=== PATIENT | male | born 1975 | race African-American/Black ===

== ENCOUNTER 2024-12-01 15:36 | Inpatient (IN) ==
--- NOTE | 2024-12-01 15:48 | Emergency Department Note ---
History of Present Illness General Chief complaint: Referred by Doctor Stated complaint: left scrotal swelling, drainage Time Seen by Provider: 12/01/24 15:47 History of Present Illness Maximum Pain Intensity: 6 This is a 49-year-old male status post bilateral hydrocelectomy on 11/11/24 that presents to the emergency department accompanied by 2 corrections officers with complaints of "infection/swelling". The patient predominant provides the history as well as history obtained from the call in paper on the patient's chart as [facility] had also called in. Patient underwent a bilateral hydrocelectomy on 11/11/24. He was seen here for scrotal edema more in the left side on 11/21. He returns today noting progressively worsening edema to the left hemiscrotum with a large amount of drainage today. He notes the amount of drainage was much more than previous. It is purulent in nature he notes that with some blood. He does note that the drain fell out prematurely from the left hemiscrotum about 4 days postop rather than 7 days. He does note yesterday fevers and chills and difficulty getting warm. Home Medications Medication Instructions Recorded Confirmed Type albuterol 90 mcg-budesonide 80 2 inh inhalation QID PRN Shortness 07/12/24 12/01/24 History mcg/actuation HFA aerosol inhaler Of Breath amlodipine 5 mg tablet (Norvasc) 5 mg PO DAILY 07/12/24 12/01/24 History atorvastatin 20 mg tablet (Lipitor) 20 mg PO HS 07/12/24 12/01/24 History docusate sodium 100 mg capsule 100 mg PO DAILY 12/01/24 12/01/24 History ibuprofen 600 mg tablet 600 mg PO TID 12/01/24 12/01/24 History Allergies Allergy/AdvReac Type Severity Reaction Status Date / Time No Known Allergies Allergy Verified 12/01/24 16:54 Past Med/Surg History Problem List COPD (chronic obstructive pulmonary disease) (Chronic) Hyperlipidemia (Chronic) Hypertension (Chronic) Left hydrocele (Acute) Inguinal hernia bilateral, non-recurrent (Chronic) Cystitis (Acute) Ventral hernia without obstruction or gangrene (Chronic) Renal cyst, acquired, left (Chronic) Reactive thrombocytosis (Acute) Neutrophilic leukocytosis (Acute) Scrotal abscess (Acute) Medical History Hydrocele in adult Reason for procedure 11/11/24 Surgical History History of hydrocelectomy History of tooth extraction "Removal of impacted tooth - soft tissue" Social History Smoking Status: Former smoker Tobacco Type: Cigarettes Cigarettes Per Day: 2 PPD; Second Hand Exposure: No; Do You Dip or Chew Tobacco: No; Hx Alcohol Use: No Hx Substance Use: No Preferred Language: Setswana Communication Ability: Effective Communication Ability Comment: CECI Tian 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 Beliefs That Will Affect Care: None Current Living Situation: Other Current Living Situation Comment: CECI Tian Feels Safe at Home: Yes Assistive Devices: Glasses Review of Systems A total of 10 systems reviewed and were otherwise negative Physical Exam Vital Signs Vital Signs - 24 hr 12/01/24 15:40 12/01/24 18:07 Temperature 36.5 C Temperature Source Skin Pulse Rate 109 H 87 Respiratory Rate 20 Respiratory Effort / Characteristics Non-Labored Spontaneous Respiratory Depth Normal Respiratory Pattern Regular Blood Pressure 110/75 Blood Pressure Mean 86 Pulse Oximetry 98 Oxygen Delivery Method Room Air Sepsis Recent Fever Within 48 Hours No Sepsis New/Unexplained Change in Mental Status N/A Sepsis Action Taken by Nursing No Action Required VITAL SIGNS - Vital signs and nursing notes were reviewed. Tachycardic at 109, otherwise stable and afebrile. GENERAL - 49-year-old male appearing his stated age who is in no acute distress. Communicates well with provider and answers questions appropriately. SKIN -See exam below. HEAD - NC/AT. EYES - Sclera anicteric. LUNGS - Chest wall symmetric without accessory muscle use, intercostals retractions, or central cyanosis. Normal vesicular breath sounds CTA B/L. No wheezes, rales, or rhonchi appreciated. CARDIAC - RRR ABDOMEN - Abdominal contour normal without pulsations or visible masses. BS normoactive all four quadrants. No tenderness, palpable masses, hepatosplenomegaly, or ascites noted. EXTREMITIES - No clubbing or peripheral cyanosis. +5/5 strength noted in UE/LE bilaterally. NEUROLOGIC - Cranial nerves II through XII grossly intact. PSYCH -alert, oriented and pleasant on examination. GUverbal consent was obtained. JUSTIN Hidalgo present as plumber pipe fitting. There is a large amount of left hemiscrotal edema tracking to the left suprapubic region. There is serosanguineous and purulent drainage from the superior aspect of the edematous region. The area is with induration as well. No fluctuance. No crepitus. Course Administered Medications Acetaminophen (Acetaminophen 500 Mg Tab) 1,000 mg PO Q8H VALERIA Stop: 12/31/24 21:59 Last Admin: 12/01/24 22:36 Dose: 1,000 mg Documented By: MIKAYLA Atorvastatin Calcium (Atorvastatin 20 Mg Tab) 20 mg PO HS VALERIA Stop: 12/31/24 21:48 Last Admin: 12/01/24 22:39 Dose: 20 mg Documented By: MIKAYLA Ceftriaxone Sodium (Rocephin) 2,000 mg in 50 mls @ 100 mls/hr IV Q24H VALERIA Stop: 12/06/24 21:59 Last Infusion: 12/01/24 23:09 Dose: Infused Documented By: Admin: 12/01/24 22:39 Dose: 100 mls/hr Documented By: MIKAYLA Ketorolac Tromethamine (Ketorolac 30 Mg/Ml Vial) 30 mg IV Q6H VALERIA Stop: 12/06/24 21:59 Last Admin: 12/01/24 22:36 Dose: 30 mg Documented By: MIKAYLA Discontinued Medications Sodium Chloride (Nss) 1,000 mls @ 999 mls/hr IV .Q1H1M ONE Stop: 12/01/24 17:01 Last Infusion: 12/01/24 18:31 Dose: Infused Documented By: Admin: 12/01/24 16:21 Dose: 999 mls/hr Documented By: ARS Piperacillin Sod/Tazobactam Sod (Zosyn) 4.5 gm in 100 mls @ 200 mls/hr IV NOW ONE; Protocol Stop: 12/01/24 17:39 Last Infusion: 12/01/24 18:31 Dose: Infused Documented By: Admin: 12/01/24 17:18 Dose: 200 mls/hr Documented By: AVM Vancomycin HCl 2,250 mg/ (Sodium Chloride) 545 mls @ 200 mls/hr IV NOW ONE Stop: 12/01/24 19:53 Last Infusion: 12/01/24 21:52 Dose: Infused Documented By: Admin: 12/01/24 18:11 Dose: 200 mls/hr Documented By: AFTAB Ioversol (Optiray 320 100ml) 94 ml IV ONCE ONE Stop: 12/01/24 17:36 Last Admin: 12/01/24 17:35 Dose: 94 ml Documented By: GUILLERMINA Medical Decision Making Laboratory Data 12/01/24 16:15 12/01/24 16:15 Lab Results 12/01/24 12/01/24 Range/Units 16:15 17:22 WBC 16.28 H (4.8-10.8) K/ul RBC 3.84 L (4.70-6.10) M/uL Hgb 11.6 L (14.0-18.0) g/dl Hct 34.5 L (42.0-52.0) % MCV 89.8 (80.0-100.0) fL MCH 30.2 (25.0-34.0) pg MCHC 33.6 (32.0-36.0) g/dL RDW Std Deviation 38.7 (36.4-46.3) fL RDW Coeff of Justine 11.9 (11.5-14.5) % Plt Count 652 H (130-400) K/uL MPV 9.4 (9.4-12.4) fL Immature Gran % (Auto) 0.4 % Neut % (Auto) 75.5 % Lymph % (Auto) 13.0 % [place] % (Auto) 9.5 % Eos % (Auto) 1.2 % Baso % (Auto) 0.4 % Neut # (Auto) 12.28 H (1.40-6.50) K/uL Lymph # (Auto) 2.12 (1.20-3.40) K/uL [place] # (Auto) 1.55 H (0.11-0.59) K/uL Eos # (Auto) 0.19 (0.00-0.50) K/uL Baso # (Auto) 0.07 (0.00-0.20) K/uL Immature Gran # (Auto) 0.07 (0.01-0.20) K/uL Sodium 134 L (136-145) mmol/L Potassium 3.5 (3.5-5.1) mmol/L Chloride 103 (98-107) mmol/L Carbon Dioxide 22 (21-32) mmol/L Anion Gap 9 (3-11) BUN 11 (6-23) mg/dl Creatinine 0.85 (0.6-1.4) mg/dl Est Cr Clr Drug Dosing 135.5 ml/min eGFR 105.86 BUN/Creatinine Ratio 12.9 (10-20) Glucose 113 H (70-99(Fasting)) mg/dl Calcium 9.3 (8.6-10.3) mg/dl Total Bilirubin 0.8 (0.2-1.0) mg/dl AST 24 (13-39) U/L ALT 34 (7-52) U/L Alkaline Phosphatase 79 (34-104) U/L Total Protein 8.6 H (6.0-8.3) gm/dl Albumin 3.9 (3.4-5.0) gm/dl Globulin 4.7 H (2.5-4.0) gm/dl Albumin/Globulin Ratio 0.8 L (0.9-2) Procalcitonin 0.10 (0-0.5) ng/ml Urine Color Dark Yellow Urine Appearance Clear (Clear) Urine pH 5.5 (4.5-7.5) Ur Specific [place] 1.030 (1.000-1.030) Urine Protein 1+ H (Negative) Urine Glucose (UA) Negative (Negative) Urine Ketones Trace H (Negative) Urine Blood Trace H (Negative) Urine Nitrite Negative (Negative) Urine Bilirubin Negative (Negative) Urine Urobilinogen Negative (Negative) Ur Leukocyte Esterase Trace H (Negative) Urine WBC (Auto) 0-5 (0-5) /hpf Urine RBC (Auto) 0-2 (0-2) /hpf U Hyaline Cast (Auto) 0-2 (0-2) /lpf U Epithel Cells (Auto) 3-5 H (0-2) /hpf Urine Bacteria (Auto) None Seen (None Seen) Urine Comment Imaging Data Radiologist's Impression: Abdomen/Pelvis CT 12/01/24 16:20 Clinical History: Scrotal edema and infection Technique: Axial computed tomography images were obtained of the abdomen and pelvis after the administration of intravenous contrast. No prior CT is available for comparison. Findings: The liver is overall of normal size, attenuation, and contour with no sign of cirrhosis or significant fatty infiltration. There are several hepatic cysts, measuring up to 1.5 cm. No liver mass lesion is seen. The portal vein is patent. The gallbladder appears unremarkable. No bile duct dilatation is noted. The spleen is of normal size. No focal splenic lesion is evident. The pancreas appears normal with no sign of acute or chronic pancreatitis and no mass lesion noted. The pancreatic duct is of normal caliber. The adrenal glands appear unremarkable. No definite renal or proximal ureteral calculi are seen on this contrast-enhanced study. There is no hydronephrosis or perinephric stranding. No renal mass lesion is identified. There is a 1 cm left renal cyst The aorta is of normal caliber. No abdominal adenopathy is seen. There is a small to moderate sized ventral hernia containing only fat. The stomach appears normal. There is no sign of small bowel obstruction. The colon appears unremarkable. The appendix appears normal also. No free intraperitoneal fluid or air is identified. No distal ureteral or bladder calculi are seen. The bladder is decompressed. There is mild diffuse prominence of the bladder wall. The iliac arteries are of normal caliber. No pelvic adenopathy is noted. There are bilateral inguinal hernias containing only fat There is prominent edema of the scrotal sac. There is a complex left hydrocele. There is a possible soft tissue abscess in the left scrotal sac, measuring up to 3.8 x 3.2 cm The lungs bases appear clear. No fracture is identified. No focal osseous lesion is seen. There is scoliosis Impression: 1. Hepatic and left renal cysts 2. Ventral and bilateral inguinal hernias containing only fat 3. Mild prominence of the wall of the urinary bladder. This appearance could be due to incomplete distention, though infectious cystitis or other pathology cannot be excluded. Correlation with urinalysis may be useful 4. Prominent edema of the scrotal sac and complex left hydrocele, as well as a possible soft tissue abscess. A scrotal ultrasound could be obtained for further evaluation ACT 112: Positive. There are findings on this exam that require communication between the performing entity and the patient following Patient Test Result Information Act ([place] ACT 112) guidelines. Electronically signed by Caleb Cruz 12-01-2024 6:27 PM MDM Narrative Patient was seen and evaluated as above in room D05. Review was performed of triage nursing notes and vital signs. I did review pertinent previous visits and patient history. After obtaining a thorough history and physical examination the above work up was performed. Patient presents to us today for evaluation of the above symptoms. In short, the patient is experiencing left hemiscrotal edema following hydrocelectomy on 12/02. On examination there is a large amount of left hemiscrotal edema with induration. There is serosanguineous and purulent material noted emanating from a small opening to the left superior aspect of the hemiscrotum. There is a benign abdomen. He is tachycardic at 109, otherwise vital signs are stable. He does endorse subjective fever/chills beginning yesterday. Options of care were discussed with the patient. IV access was established. Labs were drawn. There is leukocytosis 16.28. Minor anemia with hemoglobin of 11.6. Mild hyponatremia 134. Procalcitonin detectable, but within normal range. Hyperglycemia 113. IV Zosyn, IV vancomycin ordered for broad coverage of the suspected left hemiscrotal infection. Prior to the initiation of antibiotics, blood cultures and wound culture was obtained. Plan at this time is admission to the hospital for further evaluation and management. I discussed it with Dr. Serra, hospitalist. 1655: I spoke with Dr. Pacheco, urologist. We discussed the plan. CT scan results as above. This shows hepatic and left renal cysts. Ventral and bilateral inguinal hernias. Prominence of the urinary bladder. Prominent edema of the scrotal sac and complex of hydrocele and possible soft tissue abscess. Please refer to further documentation regarding his stay. GCS: 15 In the evaluation and treatment of this patient the following differential diagnoses were entertained: UTI, Reyes gangrene, cellulitis, postop edema, infection, among others Impression & Plan Scrotal swelling Discharge Plan Visit Data Chief Complaint: Referred by Doctor Stated Complaint: left scrotal swelling, drainage ED Provider: Omer Camargo ED Midlevel Provider: David Genao Discharge Problem: Scrotal swelling Patient Disposition: Admitted As Inpatient Condition: Good Discharge Instructions Interventions: ED Discharge Assessment Last Done: 12/01/24 20:53
[2024-12-01] MEDS: SODIUM CHLORIDE 0.9% 1,000 ML IV ONE (16:21)
[2024-12-01 16:32] LABS: Hematocrit (blood only) 34.5 % (42.0-52.0); Hemoglobin 11.6 g/dl (14.0-18.0); Immature Granulocytes # (auto) 0.07 K/uL (0.01-0.20); Immature Granulocytes % (auto) 0.4 %; Mean Corpuscular Hemoglobin 30.2 pg (25.0-34.0); Mean Corpuscular Volume 89.8 fL (80.0-100.0); Platelet Count 652 K/uL (130-400); RDW Standard Deviation 38.7 fL (36.4-46.3); Red Blood Count 3.84 M/uL (4.70-6.10); White Blood Count 16.28 K/ul (4.8-10.8)
[2024-12-01 16:50] LABS: Alanine Aminotransferase 34.0 U/L (7-52); Albumin Globulin Ratio 0.8 (0.9-2); Albumin Level 3.9 gm/dl (3.4-5.0); Alkaline Phosphatase 79.0 U/L (34-104); Anion Gap 9.0 (3-11); Bilirubin,Total 0.8 mg/dl (0.2-1.0); Blood Urea Nitrogen 11.0 mg/dl (6-23); Calcium 9.3 mg/dl (8.6-10.3); Carbon Dioxide 22.0 mmol/L (21-32); Chloride 103.0 mmol/L (98-107); Creatinine Clr Calc Pharmacy 135.5 ml/min; Globulin 4.7 gm/dl (2.5-4.0); Glucose 113.0 mg/dl (70-99(Fasting)); Potassium 3.5 mmol/L (3.5-5.1); Sodium 134.0 mmol/L (136-145); Total Protein 8.6 gm/dl (6.0-8.3)
[2024-12-01] MEDS ORDERED: VANCOMYCIN CONSULT ACTIVE PRN ×2 (17:10→21:49)
[2024-12-01] MEDS: PIPERACILLIN/TAZOBACTAM 4.5 GM/100 ML BAG IV ONE (17:18)
[2024-12-01] MEDS: OPTIRAY 320 100ml IV ONE (17:35)
[2024-12-01 17:36] LABS: Appearance Urine Clear (Clear); Bacteria Urine Automated None Seen (None Seen); Cast Urine Automated 0-2 /lpf (0-2); Glucose Urine UA Negative (Negative); RBC Urine Automated 0-2 /hpf (0-2); WBC Urine Automated 0-5 /hpf (0-5)
[2024-12-01] MEDS: VANCOMYCIN HCL 2,250 MG in SODIUM CHLORIDE 0.9% 500 ML IV ONE (18:11)
--- NOTE | 2024-12-01 18:27 | CT Scan Report ---
Clinical History: Scrotal edema and infection Technique: Axial computed tomography images were obtained of the abdomen and pelvis after the administration of intravenous contrast. No prior CT is available for comparison. Findings: The liver is overall of normal size, attenuation, and contour with no sign of cirrhosis or significant fatty infiltration. There are several hepatic cysts, measuring up to 1.5 cm. No liver mass lesion is seen. The portal vein is patent. The gallbladder appears unremarkable. No bile duct dilatation is noted. The spleen is of normal size. No focal splenic lesion is evident. The pancreas appears normal with no sign of acute or chronic pancreatitis and no mass lesion noted. The pancreatic duct is of normal caliber. The adrenal glands appear unremarkable. No definite renal or proximal ureteral calculi are seen on this contrast-enhanced study. There is no hydronephrosis or perinephric stranding. No renal mass lesion is identified. There is a 1 cm left renal cyst The aorta is of normal caliber. No abdominal adenopathy is seen. There is a small to moderate sized ventral hernia containing only fat. The stomach appears normal. There is no sign of small bowel obstruction. The colon appears unremarkable. The appendix appears normal also. No free intraperitoneal fluid or air is identified. No distal ureteral or bladder calculi are seen. The bladder is decompressed. There is mild diffuse prominence of the bladder wall. The iliac arteries are of normal caliber. No pelvic adenopathy is noted. There are bilateral inguinal hernias containing only fat There is prominent edema of the scrotal sac. There is a complex left hydrocele. There is a possible soft tissue abscess in the left scrotal sac, measuring up to 3.8 x 3.2 cm The lungs bases appear clear. No fracture is identified. No focal osseous lesion is seen. There is scoliosis Impression: 1. Hepatic and left renal cysts 2. Ventral and bilateral inguinal hernias containing only fat 3. Mild prominence of the wall of the urinary bladder. This appearance could be due to incomplete distention, though infectious cystitis or other pathology cannot be excluded. Correlation with urinalysis may be useful 4. Prominent edema of the scrotal sac and complex left hydrocele, as well as a possible soft tissue abscess. A scrotal ultrasound could be obtained for further evaluation ACT 112: Positive. There are findings on this exam that require communication between the performing entity and the patient following Patient Test Result Information Act ([place] ACT 112) guidelines. Electronically signed by Caleb Cruz 12-01-2024 6:27 PM
--- NOTE | 2024-12-01 19:07 | History & Physical Report ---
Date of Service December 01, 2024 Assessment & Plan (1) Scrotal abscess: (2) Neutrophilic leukocytosis: (3) Reactive thrombocytosis: (4) Cystitis: (5) Left hydrocele: Plan In summary this is a 49-year-old male who presents with postsurgical complication of a possible left scrotal abscess; unclear at this time if this is communicating with the scrotum proper or if this is a separate superficial skin/soft tissue abscess #Scrotal abscess with complex left hydrocele Presenting with progressive scrotal inflammation; CT scan does show concern for possible soft tissue abscess, unclear if this is communicating with the scrotum proper; notable cystitis which is likely reactive to the left scrotal abscess Follow daily CBC Continue vancomycin and ceftriaxone Pending scrotal ultrasound to further define questionable abscess Pending blood cultures urology consulted Admission and Anticipated Discharge Date Admission Date: 12/01/2024 Anticipated date of discharge: 12/03/24 History of Present Illness Chief Complaint: Scrotal pain Primary Care Provider: CECI Tian Mr. Sotelo is a 49-year-old male whose active medical conditions include hypertension, hyperlipidemia who presented to the [facility] on 12/01 by referral of their facilities physician due to concern of left scrotal and inguinal inflammation/induration with associated left scrotal discharge. The patient recently underwent percutaneous hydrocelectomy on 11/11 which was uncomplicated. He initially presented to the [facility] emergency department on 11/20 due to associated surgical area swelling and dislodged left scrotal drain; at that time there is no evidence of an infectious process and the drain was not replaced. He was discharged to maintain outpatient follow-up with urology however returns in his current presentation with progressively increased induration, swelling in the same area, and now with serosanguineous/purulent drainage from the cephalad portion of the left scrotum separate from his surgical site. The patient endorses since his previous presentation to the emergency department transient episodes of fever and chills, increasing discomfort in the left lower inguinal fold and scrotum; they deny any dysuria, hematuria, altered urinary output. They do endorse mild anorexia but are still able to tolerate oral intake. Allergies Allergy/AdvReac Type Severity Reaction Status Date / Time No Known Allergies Allergy Verified 12/01/24 16:54 Home Medications Medication Instructions Recorded Confirmed Type albuterol 90 mcg-budesonide 80 2 inh inhalation QID PRN Shortness 07/12/24 12/01/24 History mcg/actuation HFA aerosol inhaler Of Breath amlodipine 5 mg tablet (Norvasc) 5 mg PO DAILY 07/12/24 12/01/24 History atorvastatin 20 mg tablet (Lipitor) 20 mg PO HS 07/12/24 12/01/24 History docusate sodium 100 mg capsule 100 mg PO DAILY 12/01/24 12/01/24 History ibuprofen 600 mg tablet 600 mg PO TID 12/01/24 12/01/24 History Past Med/Surg History Problem List COPD (chronic obstructive pulmonary disease) (Chronic) Hyperlipidemia (Chronic) Hypertension (Chronic) Left hydrocele (Acute) Inguinal hernia bilateral, non-recurrent (Chronic) Cystitis (Acute) Ventral hernia without obstruction or gangrene (Chronic) Renal cyst, acquired, left (Chronic) Reactive thrombocytosis (Acute) Neutrophilic leukocytosis (Acute) Scrotal abscess (Acute) Medical History Hydrocele in adult Reason for procedure 11/11/24 Surgical History History of hydrocelectomy History of tooth extraction "Removal of impacted tooth - soft tissue" Social History Smoking Status: Former smoker Preferred Language: Uzbek Communication Ability: eCozy 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 Current Living Situation: Other Current Living Situation Comment: [employer] Feels Safe at Home: Yes Review of Systems Review of Systems: Review of constitutional, genitourinary, integumentary, cardiovascular, pulmonary systems was unremarkable except for as detailed in the HPI above Physical Exam Physical Exam: General: Adult male in no acute distress Vital Signs: Reviewed HEENT: Tacky mucous membranes; extraocular motion intact, pupils equally round reactive to light Pulmonary: Symmetric chest wall excursion that is unrestricted; clear to auscultation bilaterally Cardiovascular: Regular rate and rhythm without murmurs, rubs, or gallops; S1 and S2 normal; bilateral radial pulse 2+ with brisk capillary refill Genitourinary: There is dense induration of the inferior half of the left inguinal fold extending into the left scrotum; there is no palpable inguinal lymphadenopathy in this area nor the right inguinal fold; there is a 1 cm epithelial defect at the superior aspect of the left testicle with serosanguineous discharge that is expressible and tender to palpation; there is no appreciable discharge from the patient's previous surgical site which is further inferior in the left scrotum; there is no appreciable induration or tenderness in the right scrotum or testicle Results & Data Results & Data Vital Signs (Past 12 Hours) Vital Signs Temp Pulse Pulse Resp BP BP Pulse Ox 12/01/24 18:46 86 19 130/90 98 12/01/24 18:07 87 12/01/24 15:40 36.5 C 109 H 20 110/75 98 O2 Del Method 12/01/24 18:46 Room Air 12/01/24 18:07 12/01/24 15:40 Room Air Laboratory Results Leukocytosis of 16.2, neutrophilic predominance; thrombocytosis of 652,000; urinalysis is unremarkable Diagnostic Findings CT abdomen pelvis with contrast reveals edema of the scrotal left scrotal sac, a complex left hydrocele, questionable soft tissue abscess in the left scrotal sac measuring 3.8 x 3.2 cm; additionally there is noted cystitis, ventral and bilateral inguinal hernias containing fat Code Status & VTE Plan Code Status Full code VTE Prophylaxis Plan VTE Prophylaxis will be ordered: No Reason for no VTE drug order: Treatment not indicated PG Care Time/CCT Total # of Minutes Spent Total Time Spent with Patient: Total time spent is greater than 50% in coordination of care (as documented) at patient's floor/unit and/or counseling patient: Coding Level of Care Code 40218 INT INP/OBS CARE 2/55MIN Diagnoses Scrotal abscess N49.2 Neutrophilic leukocytosis D72.828 Reactive thrombocytosis D75.838 Cystitis N30.90 Left hydrocele N43.3
--- NOTE | 2024-12-01 19:49 | Urology Consultation ---
Date of Consultation December 01, 2024 Assessment & Plan (1) Left hydrocele: (2) Scrotal abscess: Plan 49-year-old male who is currently incarcerated who presented to the emergency department with fevers and left scrotal swelling. He is status post bilateral hydrocelectomy with Dr. Jung on 11/11/2024. The drain was removed at his facility from the left hemiscrotum. Afebrile stable vitals. Leukocytosis of 16.2, hemoglobin 11.6, creatinine 0.85 and urinalysis was negative. He had a CT scan of the abdomen pelvis which I independently reviewed and showed edema of the scrotal sac and a complex left hydrocele as well as a possible soft tissue abscess. Physical exam is consistent with a scrotal abscess. As he is not appropriately n.p.o., I recommended we do this at the bedside. Verbal consent was obtained as this was deemed emergent. Patient provided verbal consent. Procedure note: Area was prepped and draped in sterile fashion. 10 cc of 1% lidocaine was injected around the superior aspect of the left hemiscrotum where he was having purulent drainage. A 2 cm stab incision was made in this area with a scalpel. This area was cultured. I then probed this area with a clamp and opened up a pocket laterally. I express more blood and purulent drainage. There were no other pockets and it appeared adequately drained. I packed this with quarter inch packing. Hemostasis was appropriate. Patient tolerated this well. Continue broad-spectrum antibiotics and follow-up cultures Patient has a scrotal ultrasound ordered but not sure if this is necessary at this point given that his abscess has been drained Urology will see in the morning. Nursing can exchange packing once daily History of Present Illness History of Present Illness 49-year-old male who is currently incarcerated who presented to the emergency department with fevers and left scrotal swelling. He is status post bilateral hydrocelectomy with Dr. Jung on 11/11/2024. The drain was removed at his fac ility from the left hemiscrotum. Afebrile stable vitals. Leukocytosis of 16.2, hemoglobin 11.6, creatinine 0.85 and urinalysis was negative. He had a CT scan of the abdomen pelvis which I independently reviewed and showed edema of the scrotal sac and a complex left hydrocele as well as a possible soft tissue abscess. Patient reported swelling over the past few days and then developed fevers. He ate lunch so was not appropriately NPO. Allergies Allergy/AdvReac Type Severity Reaction Status Date / Time No Known Allergies Allergy Verified 12/01/24 16:54 Home Medications Medication Instructions Recorded Confirmed Type albuterol 90 mcg-budesonide 80 2 inh inhalation QID PRN Shortness 07/12/24 12/01/24 History mcg/actuation HFA aerosol inhaler Of Breath amlodipine 5 mg tablet (Norvasc) 5 mg PO DAILY 07/12/24 12/01/24 History atorvastatin 20 mg tablet (Lipitor) 20 mg PO HS 07/12/24 12/01/24 History docusate sodium 100 mg capsule 100 mg PO DAILY 12/01/24 12/01/24 History ibuprofen 600 mg tablet 600 mg PO TID 12/01/24 12/01/24 History Patient History Medical History Hydrocele in adult Reason for procedure 11/11/24 Surgical History History of hydrocelectomy History of tooth extraction "Removal of impacted tooth - soft tissue" Social History Smoking Status: Former smoker Preferred Language: Cameroonian Communication Ability: CECI Walter Communication Ability Comment: [employer] 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 Right hemiscrotum is normal and right testicle is palpably normal. Significant induration of left hemiscrotum with an area at the superior aspect that is draining some purulence. There is fluctuance around this area but no fluctuance or crepitus in any other area of the scrotum or perineum. Extremities: Moves all 4 spontaneously Neuro: No gross deficits Skin: Warm, dry, no rashes noted Results & Data Vital Signs (Past 12 Hours) Vital Signs Temp Pulse Pulse Resp BP BP Pulse Ox 12/01/24 18:46 86 19 130/90 98 09/24/25 18:07 87 12/01/24 15:40 36.5 C 109 H 20 110/75 98 O2 Del Method 12/01/24 18:46 Room Air 12/01/24 18:07 12/01/24 15:40 Room Air PG Care Time/CCT Total # of Minutes Spent Total Time Spent with Patient: Total time spent is greater than 50% in coordination of care (as documented) at patient's floor/unit and/or counseling patient: Coding Level of Care Code 83265 IN/OBS CONSULT LVL 3,45M Diagnoses Left hydrocele N43.3 Scrotal abscess N49.2
[2024-12-01] MEDS ORDERED: HYDROmorphone INJ 1 MG/ML SYRINGE IV PRN (21:49)
[2024-12-01] MEDS: KETOROLAC 30 MG/ML VIAL IV SCH (22:36)
[2024-12-01] MEDS: ACETAMINOPHEN 500 MG TAB PO SCH (22:36)
[2024-12-01] MEDS: cefTRIAXone SODIUM 2,000 MG/50 ML BAG IV SCH (22:39)
[2024-12-01] MEDS: ATORVASTATIN 20 MG TAB PO SCH (22:39)
[2024-12-02] MEDS: VANCOMYCIN HCL 1,750 MG in SODIUM CHLORIDE 0.9% 500 ML IV SCH (01:56)
--- NOTE | 2024-12-02 07:37 | Hospitalist Progress Note ---
Date of Service December 02, 2024 Assessment & Plan (1) Scrotal abscess: (2) Neutrophilic leukocytosis: (3) Reactive thrombocytosis: (4) Cystitis: (5) Left hydrocele: (6) MRSA nasal colonization: Plan In summary this is a 49-year-old male who presents with postsurgical complicat ion of a possible left scrotal abscess; unclear at this time if this is communicating with the scrotum proper or if this is a separate superficial skin/soft tissue abscess #Scrotal abscess with complex left hydrocele Presenting with progressive scrotal inflammation; Imaging found a left scrotal abscess which was incised and drained by urology on the evening of 12/01, subs equently packed with iodoform ribbon; wound and blood cultures are currently pending Follow daily CBC Continue vancomycin Discontinue ceftriaxone given absent evidence of gram-negative bacterial infection Scrotal ultrasound was discontinued as the patient was evaluated at bedside by urology and underwent direct incision and drainage without further complication, there is no evidence to suggest that this is a fistula formation Pending blood and wound cultures urology consulted Admission and Anticipated Discharge Date Admission Date: December 01, 2024 Anticipated date of discharge: 12/03/24 Subjective Mr. Sotelo is a 49-year-old male whose active medical conditions include hypertension, hyperlipidemia who presented to the [facility] on 12/01 by referral of their facilities physician due to concern of left scrot al and inguinal inflammation/induration with associated left scrotal discharge. The patient recently underwent percutaneous hydrocelectomy on 11/11 which was uncomplicated. He initially presented to the [facility] emergency department on 11/20 due to associated surgical area swelling and dislodged left scrotal drain; at that time there is no evidence of an infectious process and the drain was not replaced. He was discharged to maintain outpatient follow-up with urology however returns in his current presentation with progressively increased induration, swelling in the same area, and now with serosanguineous/purulent drainage from the cephalad portion of the left scrotum separate from his surgical site. In the late evening on 12/02, Urology evaluated the patient at bedside and performed an I&D with local anesthesia. This morning, the patient's inguinal and scrotal symptoms have markedly improved, though they still have focal discomfort around the I&D and previous surgical site. They deny any overnight fevers or chills. Review of Systems Review of Systems: Review of constitutional, genitourinary, integumentary, cardiovascular, pulmonary systems was unremarkable except for as detailed above Physical Exam Physical Exam: General: Adult male in no acute distress Vital Signs: Reviewed HEENT: Tacky mucous membranes; extraocular motion intact, pupils equally round reactive to light Pulmonary: Symmetric chest wall excursion that is unrestricted; clear to auscultation bilaterally Cardiovascular: Regular rate and rhythm without murmurs, rubs, or gallops; S1 and S2 normal; bilateral radial pulse 2+ with brisk capillary refill Genitourinary: there remains dense induration of the inferior half of the left inguinal fold extending into the left scrotum; there is no palpable inguinal lymphadenopathy in this area nor the right inguinal fold; the I&D site appears well, currently packed; there is no appreciable discharge from the patient's previous surgical site which is further inferior in the left scrotum; there is no appreciable induration or tenderness in the right scrotum or testicle Results & Data Results & Data Vital Signs (Past 12 Hours) Vital Signs Temp Pulse Pulse Resp BP BP Pulse Ox 12/02/24 03:48 36.6 C 88 18 107/69 97 12/01/24 23:18 37.3 C 93 H 18 100/62 95 12/01/24 21:03 98 H 12/01/24 20:57 38.6 C H 103 H 18 121/81 100 O2 Del Method 12/02/24 03:48 Room Air 12/01/24 23:18 Room Air 12/01/24 21:03 12/01/24 20:57 Room Air Laboratory Results Downtrending leukocytosis 11.5 from 16.2; remains with thrombocytosis 631 from 652; nasal MRSA swab is positive PG Care Time/CCT Total # of Minutes Spent Total Time Spent with Patient: Total time spent is greater than 50% in coordination of care (as documented) at patient's floor/unit and/or counseling patient: Coding Level of Care Code 96367 SUB INP/OBS CARE 2/35MIN Diagnoses Scrotal abscess N49.2 Neutrophilic leukocytosis D72.828 Reactive thrombocytosis D75.838 Cystitis N30.90 Left hydrocele N43.3 MRSA nasal colonization Z22.322
[2024-12-02 07:43] LABS: Hematocrit (blood only) 33.1 % (42.0-52.0); Hemoglobin 11.3 g/dl (14.0-18.0); Mean Corpuscular Hemoglobin 31.0 pg (25.0-34.0); Mean Corpuscular Volume 90.9 fL (80.0-100.0); Platelet Count 631 K/uL (130-400); RDW Standard Deviation 39.7 fL (36.4-46.3); Red Blood Count 3.64 M/uL (4.70-6.10); White Blood Count 11.57 K/ul (4.8-10.8)
[2024-12-02] MEDS: LIDOCAINE 1% LOCAL 20 ML VIAL ONE (07:50)
[2024-12-02 08:40] LABS: Albumin Level 3.6 gm/dl (3.4-5.0); Anion Gap 7.0 (3-11); Blood Urea Nitrogen 10.0 mg/dl (6-23); Calcium 9.0 mg/dl (8.6-10.3); Carbon Dioxide 24.0 mmol/L (21-32); Chloride 106.0 mmol/L (98-107); Creatinine Clr Calc Pharmacy 145.3 ml/min; Glucose 107.0 mg/dl (70-99(Fasting)); Potassium 3.6 mmol/L (3.5-5.1); Sodium 137.0 mmol/L (136-145)
[2024-12-02] MEDS: DOCUSATE SODIUM 100 MG CAP PO SCH (08:54)
--- NOTE | 2024-12-02 10:12 | Pharmacy Report ---
Pharmacy PK ABX Note - Date of Service December 02, 2024 - Assessment and Plan Assessment 49 year old M receiving vancomycin for treatment of left scrotal abscess s/p I&D 12/01. Pertinent microbiologic data includes: Positive MRSA Nasal Swab, blood cultures pending, wound culture growing staph aureus (final identification and sensitivities pending) Day # 1 of antimicrobial therapy. Plan Vancomycin * Loading dose: 2250 mg IV x 1 * Maintenance dose: 1750 mg IV every 12 hours * Regimen is predicted to achieve target AUC/ROLANDO of 400-600 mg/L.hr * Random level ordered for: 12/03/24 @1200 Pharmacy will continue to follow and will adjust dose/frequency as necessary. Thank you. Pharmacy has transitioned to AUC monitoring for vancomycin. AUC/ROLANDO is the preferred PK/PD target and is associated with decreased risk of nephrotoxicity compared to traditional trough targets.
--- NOTE | 2024-12-02 10:22 | Urology Progress Note ---
Date of Service December 02, 2024 Assessment & Plan (1) Scrotal abscess: Plan 49-year-old male status post bilateral hydrocelectomy on 11/11/24 admitted with fevers and abscess of left scrotum. Patient is status post I&D of scrotal abscess at bedside on 12/01/2024 Patient afebrile overnight, stable vitals Labs reviewedcreatinine 0.79, WBC 11.57, hemoglobin 11.3 Blood cultures pending Culture of scrotum prelim with Staphylococcus aureus Continue broad-spectrum antibiotics and follow-up cultures Nursing can exchange wound packing once daily and as needed Continue supportive care medical management per hospital medicine service will follow Admission and Anticipated Discharge Date Admission Date: December 01, 2024 Subjective Patient seen and examined at bedside this morning. 2 guards present. No acute issues overnight. Patient reports nursing exchanged his wound packing this morning. He reports mild to moderate scrotal discomfort this morning. No fever or chills overnight. No nausea or vomiting. Review of Systems Constitutional: as per Subjective / HPI Genitourinary: + as per Subjective / HPI Physical Exam Physical Exam: General: Alert and oriented, no acute distress HEENT: Normocephalic Pulmonary: Nonlabored respirations Abdomen: Nondistended : Right hemiscrotum is normal and right testicle is palpably normal. Signifi cant edema and induration of left hemiscrotum. I&D wound edges appear healthy, packing in place. Inferior left scrotum with bandage from prior drain site, appears C/D/I. No fluctuance or crepitus of the scrotum. Extremities: Moves all 4 spontaneously Neuro: alert and oriented x 3 Results & Data Vital Signs (Past 12 Hours) Vital Signs Temp Pulse Resp BP BP Pulse Ox O2 Del Method 12/02/24 08:09 36.4 C L 74 18 99/64 L 99 Room Air 12/02/24 03:48 36.6 C 88 18 107/69 97 Room Air 12/01/24 23:18 37.3 C 93 H 18 100/62 95 Room Air PG Care Time/CCT Total # of Minutes Spent Total Time Spent with Patient: Total time spent is greater than 50% in coordination of care (as documented) at patient's floor/unit and/or counseling patient: Coding Level of Care Code 51193 SUB INP/OBS CARE 1/25MIN Diagnoses Scrotal abscess N49.2
[2024-12-03 07:37] LABS: Hematocrit (blood only) 33.4 % (42.0-52.0); Hemoglobin 11.7 g/dl (14.0-18.0); Mean Corpuscular Hemoglobin 31.1 pg (25.0-34.0); Mean Corpuscular Volume 88.8 fL (80.0-100.0); Platelet Count 699 K/uL (130-400); RDW Standard Deviation 37.6 fL (36.4-46.3); Red Blood Count 3.76 M/uL (4.70-6.10); White Blood Count 6.91 K/ul (4.8-10.8)
[2024-12-03 08:01] LABS: Albumin Level 3.7 gm/dl (3.4-5.0); Anion Gap 6.0 (3-11); Blood Urea Nitrogen 10.0 mg/dl (6-23); Calcium 9.3 mg/dl (8.6-10.3); Carbon Dioxide 25.0 mmol/L (21-32); Chloride 105.0 mmol/L (98-107); Creatinine Clr Calc Pharmacy 141.8 ml/min; Glucose 102.0 mg/dl (70-99(Fasting)); Potassium 3.8 mmol/L (3.5-5.1); Sodium 136.0 mmol/L (136-145)
[2024-12-03] MEDS: LINEZOLID 600 MG TAB PO SCH (08:07)
--- NOTE | 2024-12-03 15:10 | Discharge Summary ---
Discharge Summary Date of Service December 03, 2024 Principal Dx & Hospital Course #1 = Principal Diagnosis (1) Scrotal abscess: (2) Neutrophilic leukocytosis: (3) Reactive thrombocytosis: (4) Cystitis: (5) Left hydrocele: (6) MRSA nasal colonization: Plan In summary this is a 49-year-old male who presents with postsurgical complication of a possible left scrotal abscess; unclear at this time if this is communicating with the scrotum proper or if this is a separate superficial skin/soft tissue abscess #Scrotal abscess with complex left hydrocele Presented with progressive scrotal inflammation; imaging found a left scrotal abscess which was incised and drained by urology on the evening of 12/01, subsequently packed with iodoform ribbon Vancomycin administered through 12/03; continue Linezolid 300 mg p.o. twice daily through 12/08 Blood cultures without growth at 48 hours - Wound culture yielding MRSA - Continue with daily iodoform ribbon packing, referred to wound care at discharge Admission HPI Per Admitting Provider Mr. Sotelo is a 49-year-old male whose active medical conditions include hypertension, hyperlipidemia who presented to the [facility] on 12/01 by referral of their facilities physician due to concern of left scrotal and inguinal inflammation/induration with associated left scrotal discharge. The patient recently underwent percutaneous hydrocelectomy on 11/11 which was uncomplicated. He initially presented to the [facility] emergency department on 11/20 due to associated surgical area swelling and dislodged left scrotal drain; at that time there is no evidence of an infectious process and the drain was not replaced. He was discharged to maintain outpatient follow-up with urology however returns in his current presentation with progressively increased induration, swelling in the same area, and now with serosanguineous/purulent drainage from the cephalad portion of the left scrotum separate from his surgical site. The patient endorses since his previous presentation to the emergency department transient episodes of fever and chills, increasing discomfort in the left lower inguinal fold and scrotum; they deny any dysuria, hematuria, altered urinary output. They do endorse mild anorexia but are still able to tolerate oral intake. Discharge Exam General: Adult male in no acute distress Vital Signs: Reviewed HEENT: Tacky mucous membranes; extraocular motion intact, pupils equally round reactive to light Pulmonary: Symmetric chest wall excursion that is unrestricted; clear to auscultation bilaterally Cardiovascular: Regular rate and rhythm without murmurs, rubs, or gallops; S1 and S2 normal; bilateral radial pulse 2+ with brisk capillary refill Genitourinary: there remains dense induration of the inferior half of the left inguinal fold extending into the left scrotum; there is no palpable inguinal lymphadenopathy in this area nor the right inguinal fold; the I&D site appears well, currently packed; there is no appreciable discharge from the patient's previous surgical site which is further inferior in the left scrotum; there is no appreciable induration or tenderness in the right scrotum or testicle Discharge Plan Discharge Items [facility]position[facility] Reason For Visit: SURGICAL SITE INFECTION Discharge Diagnosis: Left scrotal abscess, MRSA Condition on Discharge: Fair Activity: Per Instructions section Non-emergency contact: Primary Care Provider and Urologist Call non-emergency contact if: you have any medication questions Follow-up/Referrals: Asmita ORNELAS [Primary Care Provider] - Diet: Low Fat Fluids: 2000ml (8 cups) Ambulatory Orders: Wound care Amb Referral (Urgent) Timeframe: 1 Day Location: None Selected Ordered By: Benny Sanchez Attending Provider Instructions: You were admitted to [facility] for a left scrotal abscess. After incision and drainage which was performed in the emergency department by lesley garcía, wound cultures did yield MRSA which is sensitive to both vancomycin and linezolid. Your laboratory assessment through your hospital stay has been reassuring that there is been adequate response to the initial incision and drainage as well as antibiotic therapy. Blood cultures are without growth at 36 hours, which is highly predictive that there is no presence of a bloodstream infection at this time. He will be discharged on continued antibiotic course through 12/08, with continued daily dressing changes with iodoform ribbon and a referral has been placed to wound care for continued management in the outpatient setting. Thank you for choosing [facility] as your healthcare provider. Pending Studies at Discharge: No Stand-Alone Forms: My [facility] Skilled Items Patient informed of condition?: Yes Discharge Level of Care: Other Communicable Disease: No Discharge Prognosis: Stable Lines: None Urinary Catheter: No Medications and DC Order Prescriptions: New linezolid 600 mg Tablet 600 mg PO BID 5 Days Qty: 10 0RF Continued atorvastatin [Lipitor] 20 mg tablet 20 mg PO HS albuterol-budesonide 90-80 mcg/actuation HFA aerosol inhaler 2 inh inhalation QID PRN (Reason: Shortness Of Breath) amlodipine [Norvasc] 5 mg tablet 5 mg PO DAILY docusate sodium 100 mg Capsule 100 mg PO DAILY ibuprofen 600 mg Tablet 600 mg PO TID Rx Instructions: stop date 12/22/2024 Discharge Orders: Discharge Order (Routine); Ordered 12/03/24 Ordered By: Benny Serra Admission Data Admit Date/Time: 12/01/24 18:24 Attending Provider: Benny Serra Admit Provider: Benny Serra Primary Care Provider: Asmita ORNELAS Other Providers: Benny Serra; Van Jacobson; Rhona Blum; Everett Jung; Luzma Marquis; Gail Mays; Donny Dotson; Lelo Stevens; Olayinka Munguia; Jewels Preciado; Clement Kaufman; Eric Pacheco Other Interventions: Discharge Summary Assessment (RN) Last Done: 12/03/24 08:08 Hospital Stay Data Consultations 12/01/24 18:19 ED Decision to Admit Stat 12/01/24 19:06 Consult Urology Stat Diagnostic Imagining Performed 12/01/24 16:20 CT abd pelvis IV con only Stat Pending Results Patient Have Any Pending Studies at Discharge: No Discharge Instructions Given to Patient (Per Discharging Provider) You were admitted to [facility] for a left scrotal abscess. After incision and drainage which was performed in the emergency department by urology, wound cultures did yield MRSA which is sensitive to both vancomycin and linezolid. Your laboratory assessment through your hospital stay has been reassuring that there is been adequate response to the initial incision and drainage as well as antibiotic therapy. Blood cultures are without growth at 36 hours, which is highly predictive that there is no presence of a bloodstream infection at this time. He will be discharged on continued antibiotic course through 12/08, with continued daily dressing changes with iodoform ribbon and a referral has been placed to wound care for continued management in the outpatient setting. Thank you for choosing [facility] as your healthcare provider. Total Time Total Time Spent Total Time Spent (In Minutes): I personally spent 45 minutes in the coordination of patient's discharge today including bedside assessment, discussion of the plan of care, chart review, referrals Coding Level of Care Code 68683 INP/OBS DISCH >30 MIN Diagnoses Scrotal abscess N49.2 Neutrophilic leukocytosis D72.828 Reactive thrombocytosis D75.838 Cystitis N30.90 Left hydrocele N43.3 MRSA nasal colonization Z22.322
== END 2024-12-03 09:15 | DRG 699 ==
LOC: ED 15:36 → 2W 18:24